=== PATIENT | male | born 1995 | race Caucasian/White ===

== ENCOUNTER 2022-07-09 16:21 | Emergency (ER) | payer OTHER ==
--- OUTSIDE RECORDS SUMMARY | 2022-07-09 16:23 | XMS REPORT | Continuity of Care Document ---
:1995 Author Organization [facility] t Address [address] [place] [address] [address] [place] [address] Care Team Providers Name Role Phone PCP, PATIENT DOES NOT HAVE A Primary Care Physician Unavaila ble RORY BURRELL Attending Clinician Unavailable Rory Burrell MD Attending Clinician RORY BURRELL Admitting Clinician Unavailable Payers Payer Name Policy Type Policy Number Effective Date Expiration Date S ource MEDICAID OF [place] [id number] 2022 00:00:00 Problems This patient has no known problems. Allergies, Adverse Reactions, Alerts Allergy Allergy Status Severity Reaction(s) Onset Inactive Treating Comm ents Source Name Type Date Date Clinician NO KNOWN Drug Active Univers ALLERGIE Class ity [facility] Social History Social Habit Start Date Stop Date Quantity Comments Source Exposure to 2022-06-23 2022-07-03 Not sure [facility] SARS-CoV-2 (event) 00:00:00 13:13:00 Medica l Branch Sex Assigned At [birth year] [facility] 00:00:00 00:00:00 Medical Branch Smoking Status Start Date Stop Date Source Tobacco smoking consumption [facility] Medical unknown Branch Medications Ordered Filled Start Stop Current Ordering Indication Dosage Frequency Signature Comments Components Source Medication Medication Date Date Medication? Clinician (SIG) Name Name FENTanyl PF No 75ug 75 mcg, Un shlomo (SUBLIMAZE 07-03 Slow IV ity o f (PF)) 21:30: 20:46 Push, [place] injection 00 :00 ONCE, 1 Medical 75 mcg dose, On Branch 07/03/22 at 1630, STAT ondansetron 2022- No 4mg 4 mg, Slow Univers (ZOFRAN 07-03 IV Push, ity of (PF)) 19:15: 19:11 ONCE, 1 [place] injection 4 00 :00 dose, On Medi [place] mg [facility] 07/03/22 at 1415, TOMÁS morpHINE (4 2022- No 4mg 4 mg, Slow Univers mg/mL) 07-03 IV Push, ity of injection 4 19:15: 19:12 [place] 1 [place] :[place] dose, On Medical [facility] 07/03/22 at 1415, STAT iopamidol 2022- No [id number] 80mL 80 mL, Univers (ISOVUE 07-03 Intravenou ity o f 370-500 mL) 18:40: 19:00 s, ONCE, 1 [place] injection 00 :00 dose, On Medica l 80 mL [facility] 07/03/22 at 1400, Routine naproxen 2022- Yes [id number] 500mg Take 1 Univers 500 mg 07-03-08 tablet by ity of tablet 00:00: 04:59 mouth in [place] 00 :00 the [facility] and 1 tablet in the evening. Take with meals. Do all this for 10 days. naproxen 2022- Yes [id number] 500mg Take 1 Univers 500 mg -03 08-08 tablet by ity of tablet 00:00: 04:59 mouth in [place] 00 :00 the [facility] and 1 tablet in the evening. Take with meals. Do all this for 10 days. HYDROcodone 2022- Yes [id number] 1{tbl} Take 1 U nivers -acetaminop - 06-05 tablet by it y of [place] (NORCO) 00:00: 04:59 [place] 7.5-325 mg 00 :00 every 8 Medica l per tablet (eight) Branch hours as needed for Pain for up to 7 days. Indication s: acute pain HYDROcodone 2022- Yes [id number] 1{tbl} Take 1 U nivers -acetaminop 5-28 06-05 tablet by it y of hen (NORCO) 00:00: 04:59 [place] 7.5-325 mg 00 :00 every 8 Medica l per tablet (eight) Branch hours as needed for Pain for up to 7 days. Indication s: acute pain Vital Signs Vital Name Observation Time Observation Value Comments Source Systolic blood 2022-07-03 22:00:00 122 mm[Hg] [facility] [place] [facility] Diastolic blood 2022-07-03 22:00:00 85 mm[Hg] [facility] Heart rate 2022-07-03 22:00:00 60 /min [facility] Body temperature 2022-07-03 22:00:00 36.89 Terese [facility] Respiratory rate 2022-07-03 22:00:00 18 /min [facility] Oxygen saturation in 2022-07-03 22:00:00 100 /min [facility] Arterial blood by [facility] Pulse oximetry [place] Body height 2022-07-03 18:22:[address] [facility] Body weight 2022-07-03 18:22:[address] [facility] BMI 2022-07-03 18:22:26 20.81 kg/m2 [facility] Procedures Procedure Date / Time Performing Clinician Source Performed ABORH CONFIRMATION (LAB 2022-07-03 20:53:00 Rory Burrell [facility] ONLY) [facility] URINALYSIS 2022-07-03 20:22:00 Rory Burrell [facility] URINE DRUG (IMMUNOASSAY) 2022-07-03 20:22:00 Rory Burrell [facility] DRUG [facility] SCREEN W/O REFLEX COMP. METABOLIC PANEL 2022-07-03 19:10:00 Rory Burrell [facility] ([id number]) [facility] ETHANOL 2022-07-03 19:10:00 Rory Burrell [facility] CBC WITH DIFF 2022-07-03 19:10:00 Rory Burrell [facility] HB ABO GROUPING 2022-07-03 19:10:00 Rory Burrell [facility] CT TRAUMA THORAX W 2022-07-03 18:49:59 Rory Burrell [facility] CONTRAST Medical Branch CT TRAUMA THORACIC SPINE 2022-07-03 18:49:59 Rory Burrell [facility] CONTRAST Medical Branch CT TRAUMA ABDOMEN PELVIS 2022-07-03 18:49:59 Rory Burrell [facility] CONTRAST Medical Branch CT TRAUMA LUMBAR SPINE 2022-07-03 18:49:59 Rory Burrell [facility] CONTRAST Medical Branch CT TRAUMA HEAD WO 2022-07-03 18:42:59 Rory Burrell [facility] CONTRAST Medical Branch CT TRAUMA CERVICAL SPINE 2022-07-03 18:42:59 Rory Burrell [facility] CONTRAST Medical Branch Encounters Start End Encounter Admission Attending Care Care Encounter Source Date/Time Date/Time Type Type Clinicians Facility Department ID 2022-07-03 2022-07-03 Emergency X TOBIAS BURRELL ERT [id number] Univers 13:09:00 17:30:00 RORY casanova [facility] 2022-07-03 2022-07-03 Emergency TOBIAS Burrell [id number] Univers 13:09:00 17:30:00 Rory FLANAGAN [id number] i ty of [place] [id number] [facility] [id number] [facility] 084 Branch Results This patient has no known results.
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
[2022-07-09 20:02] VITALS: TEMP 98.2
[2022-07-09 20:03] VITALS: BP 130/90; O2SAT 100
== END 2022-07-09 19:56 | disposition home or self-care (01) ==
LOC: ER 16:21
DX: M54.12 Radiculopathy, cervical region (principal); R07.89 Other chest pain
CPT/HCPCS: 70450; 71045; 72125; 99283

== ENCOUNTER 2022-09-23 08:31 | Emergency (ER) | payer OTHER ==
--- OUTSIDE RECORDS SUMMARY | 2022-09-23 08:34 | XMS REPORT | Continuity of Care Document ---
:1995 Author Organization [facility] t Address [address] [place] [address] [address] [place] [address] Care Team Providers Name Role Phone PCP, PATIENT DOES NOT HAVE A Primary Care Physician Unavaila ble RORY BURRELL Attending Clinician Unavailable Rory Burrell MD Attending Clinician RORY BURRELL Admitting Clinician Unavailable Payers Payer Name Policy Type Policy Number Effective Date Expiration Date S ource [place]ICAID [place] [id number] 2022 00:00:00 Problems This patient has no known problems. Allergies, Adverse Reactions, Alerts Allergy Allergy Status Severity Reaction(s) Onset Inactive Treating Comm ents Source Name Type Date Date Clinician NO KNOWN Drug Active Univers ALLERGIE Class ity [facility] [place] Social History Social Habit Start Date Stop Date Quantity Comments Source Exposure to 2022-06-23 2022-07-03 Not sure [facility] SARS-CoV-2 (event) 00:00:00 13:13:00 Medica l Branch Sex Assigned At [birth year] [facility] 00:00:00 00:00:00 Medical Branch Smoking Status Start Date Stop Date Source Tobacco smoking consumption [facility] Medical unknown Branch Medications Ordered Filled [...] ity of (PF)) 19:15: 19:11 ONCE, 1 [place] injection 4 00 :00 dose, On Medi [place] mg [facility] 07/03/22 at 1415, TOMÁS morpHINE (4 2022- No 4mg 4 mg, Slow Univers mg/mL) 07-03 IV Push, ity of injection 4 19:15: 19:12 [place]CE[place] 1 [place] mg 00 :00 dose, On Medical [facility] 07/03/22 at 1415, STAT iopamidol 2022- No [id number] 80mL 80 mL, Univers (ISOVUE 07-03 Intravenou ity o f 370-500 mL) 18:40: 19:00 s, ONCE, 1 [place] injection 00 :00 dose, On Medica l 80 mL [facility] 07/03/22 at 1400, Routine naproxen 2022- Yes [id number] 500mg Take 1 Univers 500 mg 07-03-08 tablet by ity of tablet 00:00: 04:59 mouth in [place] 00 :00 the [facility] and 1 tablet in the evening. Take with meals. Do all this for 10 days. naproxen 2022- Yes [id number] 500mg Take 1 Univers 500 mg -03 08-08 tablet by ity of tablet 00:00: 04:59 mouth in [place] 00 :00 the [facility] and 1 tablet in the evening. Take with meals. Do all this for 10 days. HYDROcodone 2022- Yes [id number] 1{tbl} Take 1 U nivers -acetaminop 5- 06-05 tablet by it y of hen [...] Source Systolic blood 2022-07-03 22:00:00 122 mm[Hg] [facility] Diastolic blood 2022-07-03 22:00:00 85 mm[Hg] [facility] Heart rate 2022-07-03 22:00:00 60 /min [facility] Body temperature 2022-07-03 22:00:00 36.89 Terese [facility] Respiratory rate 2022-07-03 22:00:00 18 /min [facility] Oxygen saturation in 2022-07-03 22:00:00 100 /min [facility] Arterial blood by [facility] Pulse oximetry [place] Body height 2022-07-03 18:22:26 177.8 cm [facility] Body weight 2022-07-03 18:22:26 65.772 kg [facility] BMI 2022-07-03 18:22:26 20.81 kg/m2 [facility] Procedures Procedure Date / Time Performing Clinician Source Performed ABORH CONFIRMATION (LAB 2022-07-03 20:53:00 Rory Burrell [facility] ONLY) [facility] URINALYSIS 2022-07-03 20:22:00 Rory Burrell [facility] URINE DRUG (IMMUNOASSAY) 2022-07-03 20:22:00 Rory Burrell [facility] DRUG [facility] SCREEN W/O REFLEX COMP. METABOLIC PANEL 2022-07-03 19:10:00 Rory Burrell [facility] ([id number]) [facility] ETHANOL 2022-07-03 19:10:00 Rory Burrell [facility] CBC WITH DIFF 2022-07-03 19:10:00 Rory Burrell [facility] HB ABO GROUPING 2022-07-03 19:10:00 Rory Burrell [facility] CT TRAUMA THORAX W 2022-07-03 18:49:59 Rory Burrell [facility] CONTRAST Medical Branch CT TRAUMA THORACIC SPINE 2022-07-03 18:49:59 Rory Burrell [facility] CONTRAST Medical Branch CT TRAUMA ABDOMEN PELVIS 2022-07-03 18:49:59 Rory Burrell [facility] CONTRAST Medical Branch CT TRAUMA LUMBAR SPINE 2022-07-03 18:49:59 Rory Burrell [facility] CONTRAST Medical Branch CT TRAUMA HEAD WO 2022-07-03 18:42:59 Rory Burrell [facility] CONTRAST Medical Branch CT TRAUMA CERVICAL SPINE 2022-07-03 18:42:59 Rory Burrell [facility] CONTRAST Medical Branch Encounters Start End Encounter Admission Attending Care Care Encounter Source Date/Time Date/Time Type Type Clinicians Facility Department ID 2022-07-03 2022-07-03 Emergency X TOBIAS BURRELL ERT [id number] Univers 13:09:00 17:30:00 RORY casanova [facility] 2022-07-03 2022-07-03 Emergency TOBIAS Burrell [id number] Univers 13:09:00 17:30:00 Rory FLANAGAN [id number] i ty [facility] [id number] [facility] [id number] [facility] 084 Branch Results This patient has no known results.
[2022-09-23] MEDS ORDERED: KETOROLAC 30 MG/ML INJ ONE (08:57)
[2022-09-23] MEDS ORDERED: ONDANSETRON 4 MG (ODT) TAB ONE (08:57)
[2022-09-23 09:16] LABS: SARS-CoV-2 Antigen Rapid Res Negative (Negative)
--- NOTE | 2022-09-23 10:19 | EDPHYS ---
[facility] Name: Abhishek Anne Age: 26 yrs Sex: Male : 1995 Arrival Date: 09/23/2022 Time: 08:31 Bed 8 Private MD: ED Physician Jossue Dugan HPI: 09/23 08:39 This 26 yrs old Male presents to ER via Unassigned with complaints of Vomiting, Mouth jh7 Problem, Toothache. 08:39 The patient presents to the emergency department with vomiting. Onset: The jh7 symptoms/episode began/occurred 3 day(s) ago. Associated signs and symptoms: Pertinent positives: sore throat, tooth pain. 26-year-old male presents with tooth pain, sore throat, body aches, and vomiting for the past 3 days. The patient reports that he needs to get his right lower wisdom tooth removed and that it is recently broke through the skin. States that now his throat is sore, he is experiencing painful swallowing, and he has experienced intermittent vomiting.. Historical: - Allergies: 08:58 No Known Allergies; hb - Home Meds: 08:58 None [Active]; hb - PMHx: 08:58 torn rotator cuff; hb - Immunization history:: Adult Immunizations up to date. - Social history:: Smoking status: Patient denies any tobacco usage or history of. ROS: 08:39 Eyes: Negative for injury, pain, redness, and discharge, Neck: Negative for injury, jh7 pain, and swelling, Cardiovascular: Negative for chest pain, palpitations, and edema, Respiratory: Negative for shortness of breath, cough, wheezing, and pleuritic chest pain, Back: Negative for injury and pain, MS/Extremity: Negative for injury and deformity, Skin: Negative for injury, rash, and discoloration, Neuro: Negative for headache, weakness, numbness, tingling, and seizure. 08:39 Constitutional: Positive for body aches, malaise. 08:39 ENT: Positive for sore throat, Teeth pain 08:39 Abdomen/GI: Positive for nausea, vomiting. 08:39 All other systems are negative. Exam: 08:39 Eyes: Pupils equal round and reactive to light, extra-ocular motions intact. Lids and jh7 lashes normal. Conjunctiva and sclera are non-icteric and not injected. Cornea within normal limits. Periorbital areas with no swelling, redness, or edema. Neck: Trachea midline, no thyromegaly or masses palpated, and no cervical lymphadenopathy. Supple, full range of motion without nuchal rigidity, or vertebral point tenderness. No Meningismus. Cardiovascular: Regular rate and rhythm with a normal S1 and S2. No gallops, murmurs, or rubs. Normal PMI, no JVD. No pulse deficits. Respiratory: Lungs have equal breath sounds bilaterally, clear to auscultation and percussion. No rales, rhonchi or wheezes noted. No increased work of breathing, no retractions or nasal flaring. Abdomen/GI: Soft, non-tender, with normal bowel sounds. No distension or tympany. No guarding or rebound. No evidence of tenderness throughout. Back: No spinal tenderness. No costovertebral tenderness. Full range of motion. Skin: Warm, dry with normal turgor. Normal color with no rashes, no lesions, and no evidence of cellulitis. MS/ Extremity: Pulses equal, no cyanosis. Neurovascular intact. Full, normal range of motion. Neuro: Awake and alert, GCS 15, oriented to person, place, time, and situation. Motor strength 5/5 in all extremities. Sensory grossly intact. Normal gait. 08:39 Constitutional: The patient appears alert, awake, in obvious pain. 08:39 ENT: Posterior pharynx: Uvula: normal, swelling, that is mild, erythema, that is moderate, exudate, that is moderate, Dental exam: pain, that is moderate, specifically in the lower right third molar (#32). Vital Signs: 08:46 BP 132 / 82; Pulse 77; Resp 16; Temp 99.5(O); Pulse Ox 100% on R/A; Weight 65.77 kg; hb Height 5 ft. 9 in. ; Pain 9/10; 08:46 Body Mass Index 21.41 (65.77 kg, 175.26 cm) hb 08:46 Pain Scale: Adult hb MDM: 08:35 Patient medically screened. [facility] 10:21 Differential diagnosis: Strep throat, flu, COVID, acute pharyngitis, exudative [facility] tonsillitis, mononucleosis, dental abscess. Data reviewed: vital signs, nurses notes, lab test result(s). I considered the following discharge prescriptions or medication management in the emergency department Medications were administered in the Emergency Department. See MAR. Historians other than the Patient: Spouse/Significant Other: . Counseling: I had a detailed discussion with the patient and/or guardian regarding the historical points, exam findings, and any diagnostic results supporting the discharge/admit diagnosis, to return to the emergency department if symptoms worsen or persist or if there are any questions or concerns that arise at home. Response to treatment: the patient's symptoms have markedly improved after treatment. 09/23 08:43 Order name: Strep 7 09/23 08:43 Order name: Flu; Complete Time: 09:30 [facility] 09/23 08:43 Order name: SARS RAPID; Complete Time: 09:18 [facility] 09/23 09:11 Order name: Throat Culture EDMS 09/23 09:18 Order name: [place] Screen Profile; Complete Time: 10:21 [facility] Administered Medications: 08:57 Drug: Ketorolac IM 60 mg Route: IM; Site: left deltoid; hb 09:37 Follow up: Response: No adverse reaction hb 08:57 Drug: Ondansetron Oral Disintegrating Tablet Oral Disintegrating Tablet 4 mg Route: PO; hb 09:37 Follow up: Response: No adverse reaction hb Disposition: 11:58 Co-signature as Attending Physician, Jossue Dugan MD I reviewed the patient's care rn provided by the Advanced Practice Provider and agree with the diagnosis and treatment plan. Disposition Summary: 09/23/22 10:18 Discharge Ordered Location: Home [facility] Problem: new [facility] Symptoms: have improved [facility] Condition: Stable [facility] Diagnosis - Acute pharyngitis, unspecified [facility] Followup: [facility] - With: Private Physician - When: 2 - 3 days - Reason: Recheck today's complaints Discharge Instructions: - Discharge Summary Sheet [facility] - Pharyngitis [facility] - Sore Throat [facility] Forms: - Medication Reconciliation Form [facility] - Thank You Letter [facility] - Antibiotic Education [facility] - Patient Portal Instructions [facility] - Leadership Thank You Letter [facility] Prescriptions: - ondansetron 4 mg Oral Tablet,disintegrating - take 1 tablet by ORAL route every 6 hours As needed; 20 tablet; Refills: 0, jh7 Product Selection Permitted - Augmentin 875-125 mg Oral Tablet - take 1 tablet by ORAL route every 12 hours for 10 days; 20 tablet; Refills: 0, jh7 Product Selection Permitted - Prednisone 20 mg Oral Tablet - take 2 tablets by ORAL route once daily for 5 days; 10 tablet; Refills: 0, 7 Product Selection Permitted Signatures: [employer] Jossue Bay MD MD rn Baxter, Heather, RN RN Francine Calloway, J[employer]ITOR[employer] SUPERVISOR [place] [id number]
--- NOTE | 2022-09-23 10:19 | ER ---
Nurse's Notes [facility] Name: Abhishek Anne Age: 26 yrs Sex: Male : 1995 Arrival Date: 09/23/2022 Time: 08:31 Bed 8 Private MD: Diagnosis: Acute pharyngitis, unspecified Presentation: 09/23 08:45 Chief complaint: N/V and body aches x 3 days. Coronavirus screen: Client presents with hb at least one sign or symptom that may indicate coronavirus-19. Provider contacted for isolation considerations. Ebola Screen: No symptoms or risks identified at this time. Initial Sepsis Screen: Does the patient meet any 2 criteria? No. Patient's initial sepsis screen is negative. Does the patient have a suspected source of infection? No. Patient's initial sepsis screen is negative. Risk Assessment: Do you want to hurt yourself or someone else? Patient reports no desire to harm self or others. Onset of symptoms was September 20, 2022. 08:45 Method Of Arrival: Ambulatory hb 08:45 Acuity: FELECIA 4 hb Historical: - Allergies: 08:58 No Known Allergies; hb - Home Meds: 08:58 None [Active]; hb - PMHx: 08:58 torn rotator cuff; hb - Immunization history:: Adult Immunizations up to date. - Social history:: Smoking status: Patient denies any tobacco usage or history of. Screenin:02 [facility] ED Fall Risk Assessment (Adult) Score/Fall Risk Level 0 - 2 = Low Risk hb Oriented to surroundings, Maintained a safe environment. Abuse screen: Denies threats or abuse. Denies injuries from another. Nutritional screening: No deficits noted. Tuberculosis screening: No symptoms or risk factors identified. Assessment: 09:01 General: Appears in no apparent distress. Behavior is calm, cooperative. Pain: Pain hb currently is 9 out of 10 on a pain scale. Neuro: Level of Consciousness is awake, alert, obeys commands, Oriented to person, place, time, situation. Cardiovascular: Patient's skin is warm and dry. Respiratory: Respiratory effort is even, unlabored, Respiratory pattern is regular, symmetrical. GI: Reports nausea, vomiting. : No signs and/or symptoms were reported regarding the genitourinary system. EENT: No signs and/or symptoms were reported regarding the EENT system. Derm: Skin is pink, warm \T\ dry. Musculoskeletal: Reports body aches. Vital Signs: 08:46 BP 132 / 82; Pulse 77; Resp 16; Temp 99.5(O); Pulse Ox 100% on R/A; Weight 65.77 kg; hb Height 5 ft. 9 in. ; Pain 9/10; 08:46 Body Mass Index 21.41 (65.77 kg, 175.26 cm) hb 08:46 Pain Scale: Adult hb ED Course: 08:34 Patient arrived in ED. im 08:35 [facility]NP [facility] 08:35 Jossue Dugan MD is Attending Physician. [facility] 08:58 Triage completed. hb 08:58 Arm band placed on. hb 09:02 Patient has correct armband on for positive identification. Provided Education on: . hb 09:36 Kusum Chavez, RN is Primary Nurse. hb 10:42 No provider procedures requiring assistance completed. Patient did not have IV access ld1 during this emergency room visit. Administered Medications: 08:57 Drug: Ketorolac IM 60 mg Route: IM; Site: left deltoid; hb 09:37 Follow up: Response: No adverse reaction hb 08:57 Drug: Ondansetron Oral Disintegrating Tablet Oral Disintegrating Tablet 4 mg Route: PO; hb 09:37 Follow up: Response: No adverse reaction hb Medication: 09:03 VIS not applicable for this client. hb Outcome: 10:18 Discharge ordered by . 7 10:42 Discharged to home ambulatory, with family. ld1 10:42 Condition: stable 10:42 Discharge instructions given to patient, family, Instructed on discharge instructions, follow up and referral plans. medication usage, Demonstrated understanding of instructions, follow-up care, medications, Prescriptions given X 3. 10:42 Patient left the ED. ld1 Signatures: Kusum Chavez RN RN Kiley Taveras RN RN 1 Francine Arora FNP [place] [id number] Vane [address]ck[address]
[2022-09-23 10:47] VITALS: BP 132/82; TEMP 99.5; O2SAT 100
== END 2022-09-23 10:42 | disposition home or self-care (01) ==
LOC: ER 08:31
DX: J02.9 Acute pharyngitis, unspecified (principal); R11.10 Vomiting, unspecified; K08.89 Other specified disorders of teeth and supporting structures; Z20.822 Contact with and (suspected) exposure to COVID-19
CPT/HCPCS: 87070; 36415; 86308; 87081; 87804 ×2; 96372; 99284; 87811; Q0162